=== PATIENT | female | born 1970 | race Two or more races ===

== ENCOUNTER 2017-01-01 05:54 | Day surgery (SDC) | payer BC, MEDICAID ==
[~2017-01-01 05:54] MED LIST: CEFAZOLIN SODIUM 2 GRAM DUPLEX 2 G in Premix (D5W) 50 ml 1 EACH IV PRN; IV START KIT ONE; LACTATED RINGERS 1,000 ML IV SCH; LACTATED RINGERS 1,000 ML ONE; LIDOCAINE 1% 2 ML VIAL ID PRN
[2017-01-01] MEDS ORDERED: CEFAZOLIN SODIUM 2 GRAM PREMIX 100 ML IV ONE (06:53)
[2017-01-01] MEDS ORDERED: FENTANYL 100 MCG/2 ML VIAL ONE (06:59)
[2017-01-01] MEDS ORDERED: HYDRALAZINE HCL 20 MG/1 ML VIAL IV PRN (07:28)
[2017-01-01] MEDS ORDERED: NALOXONE HCL 0.4 MG/ML VIAL IV PRN (07:28)
[2017-01-01] MEDS ORDERED: ATROPINE SULFATE 0.4 MG/1 ML VIAL IV PRN (07:28)
[2017-01-01] MEDS ORDERED: ONDANSETRON 4 MG/2ML 2 ML VIAL IV PRN ×2 (07:28→08:29)
[2017-01-01] MEDS ORDERED: PROMETHAZINE HCL 25 MG/ML VIAL IM PRN (07:28)
[2017-01-01] MEDS ORDERED: LACTATED RINGERS 1,000 ML IV SCH ×2 (07:30→08:29)
[2017-01-01] MEDS ORDERED: PROPOFOL 20 ML IV ONE (07:34)
[2017-01-01] MEDS ORDERED: KETOROLAC TROMETHAMINE 30 MG/ML 1 ML VIAL ONE (07:34)
[2017-01-01] MEDS ORDERED: METOCLOPRAMIDE HCL 5 MG/ML 2ML VIAL ONE (07:34)
[2017-01-01] MEDS ORDERED: MEPERIDINE 25 MG/ML SYRINGE ONE ×2 (08:06→08:24)
[2017-01-01] MEDS: MEPERIDINE 25 MG/ML SYRINGE IV PRN ×2 (08:08→08:26)
[2017-01-01] MEDS ORDERED: MORPHINE SULFATE 4 MG/ML SYRINGE ONE (08:10)
[2017-01-01] MEDS: MORPHINE SULFATE 4 MG/ML SYRINGE IV PRN ×2 (08:11→08:21)
[2017-01-01] MEDS ORDERED: OXYCODONE HCL 5 MG TABLET PO PRN (08:29)
[2017-01-01] MEDS ORDERED: KETOROLAC TROMETHAMINE 30 MG/ML 1 ML VIAL IV PRN (08:29)
[2017-01-01] MEDS ORDERED: OXYCODONE HCL 5 MG TABLET ONE (09:00)
--- NOTE | 2017-01-01 10:06 | OP ---
Kemi Snow DATE: 01/01/2017 SURGEON: Randal Fair MD. PREOPERATIVE DIAGNOSIS: Endometrioma in previous incision. POSTOPERATIVE DIAGNOSIS: Incisional hernia. OPERATION: Repair of incisional hernia. FINDINGS: There was a hernia in the left lateral edge of the previous hysterectomy incision, it contained omentum only. TECHNICAL PROCEDURE: After induction of satisfactory general anesthesia the patient was placed in the supine position and prepped and draped in the usual fashion. A incision was made in the left edge of the previous incision, this was carried down to the subcutaneous fascia. At the level of the fascia a hernia was noted. The hernia sac was dissected free and then excised. The fascial defect that was left was then closed with interrupted simple stitches of 0 Nurolon. The subcutaneous tissue was closed with simple stitches of 3-0 plain catgut and the skin was closed in a subcuticular fashion using a 4-0 Stratafix suture. Skin also was then treated with skin adhesive and Steri-Strips. The patient tolerated the procedure well and left the operating room awake and in good condition. There were no complications. Instrument, needle, and sponge counts were correct. Estimated blood loss was minimal. There was no blood replacement. JOB: [id number]
== END 2017-01-01 10:09 | disposition home or self-care (01) ==
LOC: SDC 05:54
PROVIDERS: ATTEND Obstetrics & Gynecology
PROC: 0WQF0ZZ Repair Abdominal Wall, Open Approach (ICD-10-PCS; principal; 2017-01-01)
DX: K43.2 Incisional hernia without obstruction or gangrene (principal)
CPT/HCPCS: 49560; J2175 ×4; J3010; J2270; A9270; J2765; J1885; J2405; J7120; J0690